=== PATIENT | male | born 1965 | race African-American/Black ===

== ENCOUNTER 2024-09-28 15:19 | Inpatient (IN) | payer MEDICAID ==
[~2024-09-28] VITALS: Ht 188 cm; Wt 122.5 kg
[2024-09-28] MEDS ORDERED: IPRATROPIUM BROMIDE (0.02%) 0.5MG/2.5ML NEB HHN STA (16:01)
[2024-09-28] MEDS ORDERED: ALBUTEROL (0.083%) 2.5MG/3ML NEB HHN STA (16:01)
[2024-09-28] MEDS: HYDRALAZINE 20MG/ML VIAL IV ONE (16:15)
[2024-09-28] MEDS: METHYLPREDNISOLONE SOD SUCC 125MG/2ML (ACT-O-VIAL) IV SCH (16:28)
[2024-09-28] MEDS: FUROSEMIDE 40MG/4ML VIAL IV ONE (16:28)
[2024-09-28] MEDS: CLONIDINE 0.2MG TABLET PO ONE (16:28)
[2024-09-28] MEDS ORDERED: IPRATROPIUM BROMIDE (0.02%) 0.5MG/2.5ML NEB HHN SCH (16:30)
[2024-09-28] MEDS: METHYLPREDNISOLONE 40MG/ML INJ IV ONE (16:37)
[2024-09-28 16:55] LABS: CHLORIDE 102 mEq/L (98-107); POTASSIUM 3.9 mEq/L (3.5-5.1); SODIUM 132 mEq/L (136-145)
[2024-09-28 16:56] LABS: CALCIUM 8.4 mg/dL (8.7-10.4); CARBON DIOXIDE 21 mEq/L (21-32)
[2024-09-28 17:01] LABS: CREATININE 0.9 mg/dL (0.6-1.3); GLUCOSE 177 mg/dL (70-105); UREA NITROGEN BLOOD 9 mg/dL (9-23)
[2024-09-28 17:04] LABS: BASOPHILS % 0.8 % (0.0-2.0); EOSINOPHILS % 9.8 % (0.0-5.0); HEMATOCRIT. 35.6 % (42.0-52.0); HEMOGLOBIN. 11.1 g/dL (14.0-18.0); MEAN CORPUSCULAR HEMOGLOBIN 23.5 pg (28.0-32.0); MEAN CORPUSCULAR HGB CONC 31.2 g/dL (31.0-37.0); MEAN CORPUSCULAR VOLUME 75.3 fL (80.0-94.0); MEAN PLATELET VOLUME 8.3 fl (7.4-10.4); MONOCYTES % 14.1 % (2.0-8.0); NEUTROPHILS % 46.3 % (40.0-76.0); PLATELET 369 x1000/uL (130-400); RED BLOOD CELL COUNT 4.73 mill/uL (4.7-6.1); RED CELL DISTRIBUTION WIDTH 22.3 % (11.6-14.6); WHITE BLOOD COUNT 6.1 x1000/uL (4.5-11.0)
[2024-09-28 17:06] LABS: ADD RBC MORPHOLOGY YES; DIFFERENTIAL COMMENT 1
[2024-09-28 17:17] LABS: TROPONIN I HIGH SENSITIVITY 54 ng/L (3.0-53)
[2024-09-28 17:27] LABS: HYPOCHROMASIA 1+; MICROCYTOSIS 2+; OVALOCYTES 1+; PLATELET ESTIMATE NORMAL
[2024-09-28 18:35] LABS: TROPONIN I HIGH SENSITIVITY 57 ng/L (3.0-53)
[2024-09-28 18:51] LABS: INR 1.1; PROTHROMBIN TIME 11.5 sec (9.6-11.0)
[2024-09-28] MEDS ORDERED: IPRATROPIUM/ALBUTEROL 0.5-3(2.5)MG/3ML NEB HHN PRN (20:00)
[2024-09-28] MEDS ORDERED: ONDANSETRON HCL 4MG/2ML INJ IV PRN (20:00)
[2024-09-28] MEDS ORDERED: MAGNESIUM/ALUMINUM HYDROXIDE/SIMETHICONE 30ML UDC PO PRN (20:00)
[2024-09-28] MEDS ORDERED: GUAIFENESIN 200MG/10ML SUGAR FREE UDC PO PRN (20:00)
[2024-09-28] MEDS ORDERED: ZOLPIDEM TARTRATE 5MG TABLET PO PRN (20:00)
[2024-09-28] MEDS ORDERED: ACETAMINOPHEN 325MG TABLET PO PRN ×2 (20:00)
[2024-09-28 20:46] LABS: IRON 28 ug/dL (65-175)
[2024-09-28 20:47] LABS: ETHANOL BLOOD 19 mg/dL (<10)
[2024-09-28 20:49] LABS: PHOSPHORUS 2.9 mg/dL (2.5-4.9); TOTAL IRON BINDING CAPACITY 315 ug/dl (250-425)
[2024-09-28] MEDS: ALBUTEROL (0.083%) 2.5MG/3ML NEB HHN NR (20:51)
[2024-09-28] MEDS: IPRATROPIUM BROMIDE (0.02%) 0.5MG/2.5ML NEB HHN NR (20:51)
[2024-09-28 20:53] VITALS: PULSE 103; RESP 20; O2SAT 98
[2024-09-28 20:53] LABS: T4 FREE 1.21 ng/dL (0.89-1.76); THYROID STIMULATING HORMONE 0.75 uIU/mL (0.55-4.78)
[2024-09-28] MEDS: MONTELUKAST SODIUM 10MG TABLET PO SCH (21:00)
[2024-09-28 21:17] LABS: CLARITY URINE CLEAR (CLEAR); COLOR URINE YELLOW (YELLOW); GLUCOSE URINE 2+ (NEGATIVE); KETONES URINE NEGATIVE (NEGATIVE); LEUKOCYTE ESTERASE URINE NEGATIVE (NEGATIVE); NITRITE URINE NEGATIVE (NEGATIVE); OCCULT BLOOD URINE NEGATIVE (NEGATIVE); PH URINE 5.5 (4.5-8.0); PROTEIN URINE 2+ (NEGATIVE); SPECIFIC GRAVITY URINE 1.006 (1.005-1.030); UROBILINOGEN URINE 0.2 E.U./dL (0.2-1.0)
[2024-09-28 21:28] LABS: *AMPHETAMINES SCREEN URINE NEGATIVE (NEGATIVE); *BARBITURATES SCREEN URINE NEGATIVE (NEGATIVE); *BENZODIAZEPINES SCREEN URINE NEGATIVE (NEGATIVE); *COCAINE SCREEN URINE PRESUMPTIVE POSITIVE (NEGATIVE); CANNABINOID URINE SCREEN NEGATIVE (NEGATIVE); ECSTASY MDMA SCREEN URINE NEGATIVE (NEGATIVE); METHADONE URINE SCREEN NEGATIVE (NEGATIVE); OPIATES URINE SCREEN NEGATIVE (NEGATIVE); PHENCYCLIDINE URINE SCREEN NEGATIVE (NEGATIVE)
[2024-09-28 21:47] LABS: BACTERIA URINE TRACE; RBC URINE NONE SEEN /hpf (0-2); SQUAMOUS EPITHELIAL CELL URINE FEW /lpf (RARE/1+); WBC URINE 0-2 /hpf (0-2)
[2024-09-28] MEDS: ENOXAPARIN 30MG/0.3ML SYR SUBCUT SCH (23:44)
[2024-09-29 00:14] LABS: CREATINE KINASE MB FRACTION 4.1 ng/mL (0.5-3.6)
[2024-09-29 01:00] VITALS: BP 134/78; PULSE 99; RESP 20; TEMP 36.6
[2024-09-29] MEDS: CLONIDINE 0.1MG TABLET PO PRN (04:17)
[2024-09-29 08:00] VITALS: BP 176/113; PULSE 98; RESP 20; TEMP 36.5; O2SAT 98
[2024-09-29] MEDS: FERROUS SULFATE 325MG TABLET PO SCH (09:36)
[2024-09-29] MEDS: PANTOPRAZOLE SODIUM 40 MG/VIAL IV SCH (09:36)
[2024-09-29] MEDS: FUROSEMIDE 40MG/4ML VIAL IVP SCH (09:36)
[2024-09-29] MEDS: DOCUSATE SODIUM 100MG CAPSULE PO PRN (09:36)
[2024-09-29] MEDS: MAGNESIUM 2 G PREMIX 50 ML IV NR (09:37)
[2024-09-29] MEDS: METOLAZONE 2.5MG TABLET PO SCH (09:39)
[2024-09-29] MEDS: IBUPROFEN 600MG TABLET PO PRN (11:54)
[2024-09-29 12:00] VITALS: BP 175/94; PULSE 96; RESP 20; TEMP 36.7; O2SAT 100
[2024-09-29 12:22] LABS: HEMOGLOBIN. 11.5 g/dL (14.0-18.0); MEAN CORPUSCULAR HEMOGLOBIN 24.1 pg (28.0-32.0); MEAN CORPUSCULAR HGB CONC 31.8 g/dL (31.0-37.0); MEAN CORPUSCULAR VOLUME 75.6 fL (80.0-94.0); MEAN PLATELET VOLUME 8.5 fl (7.4-10.4); PLATELET 320 x1000/uL (130-400); RED BLOOD CELL COUNT 4.76 mill/uL (4.7-6.1); RED CELL DISTRIBUTION WIDTH 22.3 % (11.6-14.6); WHITE BLOOD COUNT 3.1 x1000/uL (4.5-11.0)
[2024-09-29 12:34] LABS: CHLORIDE 99 mEq/L (98-107); POTASSIUM 4.9 mEq/L (3.5-5.1); SODIUM 132 mEq/L (136-145)
[2024-09-29 12:35] LABS: CALCIUM 8.8 mg/dL (8.7-10.4); CARBON DIOXIDE 22 mEq/L (21-32)
[2024-09-29 12:40] LABS: CREATINE KINASE MB FRACTION 3.2 ng/mL (0.5-3.6); CREATININE 1.3 mg/dL (0.6-1.3); TRIGLYCERIDE 112 mg/dL (0-150); UREA NITROGEN BLOOD 15 mg/dL (9-23)
[2024-09-29 12:41] LABS: LDL CHOLESTEROL 118 mg/dL (5-100); PROTEIN TOTAL 7.5 g/dL (6.0-8.3)
[2024-09-29 12:42] LABS: ALANINE AMINOTRANSFERASE 19 IU/L (10-49); ALBUMIN 3.9 g/dL (3.2-4.8); ASPARTATE AMINOTRANSFERASE 16 IU/L (<34); BILIRUBIN DIRECT 0.3 mg/dL (<=3.0); BILIRUBIN TOTAL 0.9 mg/dL (0.1-1.0); CHOLESTEROL 182 mg/dL (<200); HDL CHOLESTEROL 47 mg/dL (>55); PHOSPHORUS 3.1 mg/dL (2.5-4.9)
[2024-09-29 12:57] LABS: DIFFERENTIAL COMMENT 1
[2024-09-29 13:07] LABS: GLUCOSE 420 mg/dL (70-105)
[2024-09-29 14:25] LABS: MICROCYTOSIS 1+
[2024-09-29 14:26] LABS: ANISOCYTOSIS 3+; PLATELET ESTIMATE NORMAL
[2024-09-29] MEDS: ISOSORBIDE MONONITRATE 30MG TABLET SR 24HR PO SCH (15:07)
[2024-09-29 16:00] VITALS: BP 150/98; PULSE 89; RESP 20; TEMP 36.2; O2SAT 99
[2024-09-29 20:00] VITALS: BP 166/98; PULSE 96; RESP 19; TEMP 36.6; O2SAT 98
[2024-09-29] MEDS ORDERED: DEXTROSE 50% WATER 50ML SYRINGE IV PRN (21:15)
[2024-09-30] VITALS: BP 154/88; PULSE 96; RESP 19; TEMP 36.4; O2SAT 98
[2024-09-30] MEDS: INSULIN LISPRO 100 UNITS/ML SUBCUT NR (00:40)
[2024-09-30 04:00] VITALS: BP 124/62; PULSE 65; RESP 19; TEMP 36.3; O2SAT 98
[2024-09-30] MEDS: BLOOD SUGAR DIAGNOSTIC STRIP TEST SCH (05:58)
[2024-09-30 08:00] VITALS: BP 178/95; PULSE 85; RESP 20; TEMP 36.2; O2SAT 99
[2024-09-30] MEDS: INSULIN LISPRO 100 UNITS/ML SUBCUT SCH (09:02)
[2024-09-30 12:02] VITALS: BP 143/81; PULSE 77; RESP 18; TEMP 36.3; O2SAT 97
[2024-09-30] MEDS: AMIODARONE 200MG TABLET PO SCH (12:49)
[2024-09-30 13:19] VITALS: BP 143/81; PULSE 77; TEMP 97.3; O2SAT 97
== END 2024-09-30 13:30 | disposition home or self-care (01) | DRG 194 ==
LOC: ER 15:19 → EDBEDREQ 16:04 → EDBEDREQTM 17:22 → 7WST 21:40
PROVIDERS: ADMIT Internal Medicine; ATTEND Internal Medicine
DX: I11.0 Hypertensive heart disease with heart failure (principal); I21.A1 Myocardial infarction type 2; E87.1 Hypo-osmolality and hyponatremia; I48.92 Unspecified atrial flutter; M86.8X8 Other osteomyelitis, other site; E11.69 Type 2 diabetes mellitus with other specified complication; I50.23 Acute on chronic systolic (congestive) heart failure; J44.1 Chronic obstructive pulmonary disease with (acute) exacerbation; I16.0 Hypertensive urgency; D50.9 Iron deficiency anemia, unspecified; E83.42 Hypomagnesemia; Z89.421 Acquired absence of other right toe(s); Z79.899 Other long term (current) drug therapy
CPT/HCPCS: 36415; 71045; 80048; 80061; 80076; 80305; 80320; 81003; 82550; 82553; 82728; 82962; 83036; 83540; 83550; 83735; 83880; 83930; 83935; 84100; 84439; 84443; 84484; 85025; 85379; 93005; 93306; 94070; 94640; 94664; 99285; A4606; J0360; J1650; J1815; J1940; J2470; J2919; J3475; G0480

== ENCOUNTER 2025-02-25 11:45 | Emergency (ER) | payer MEDICAID ==
[~2025-02-25] VITALS: Ht 180.3 cm; Wt 110.0 kg
[~2025-02-25 11:45] MED LIST: APIX5TAB PO; ASPI-1160 PO; CARV25TA47 PO; CLON0.3T PO; HYDR50TA40 MT; INSU100I28 SQ; METF-1150 MT; MONT-39 PO; QUET100T34 PO; SPIR50TA5 PO
[2025-02-25 11:47] VITALS: O2SAT 99
[2025-02-25] MEDS ORDERED: NITROGLYCERIN 0.4MG TABLET SL SL PRN (12:30)
[2025-02-25 12:35] LABS: BASOPHILS % 2.0 % (0.0-2.0); EOSINOPHILS % 8.7 % (0.0-5.0); HEMATOCRIT. 37.8 % (42.0-52.0); HEMOGLOBIN. 12.3 g/dL (14.0-18.0); LYMPHOCYTES % 25.8 % (20.0-50.0); MEAN PLATELET VOLUME 8.0 fl (7.4-10.4); MONOCYTES % 10.3 % (2.0-8.0); NEUTROPHILS % 53.2 % (40.0-76.0); PLATELET 419 x1000/uL (130-400); RED BLOOD CELL COUNT 4.62 mill/uL (4.7-6.1); RED CELL DISTRIBUTION WIDTH 18.8 % (11.6-14.6)
[2025-02-25] MEDS: FUROSEMIDE 40MG/4ML VIAL IV ONE (12:41)
[2025-02-25] MEDS: MORPHINE SULFATE 4 MG/ML INJ (FOR IV/IM USE) IV ONE (12:42)
[2025-02-25] MEDS: ONDANSETRON HCL 4MG/2ML INJ IV ONE (12:42)
[2025-02-25] MEDS: ASPIRIN 81MG TABLET PO ONE (12:42)
[2025-02-25 12:48] LABS: INR 1.0
[2025-02-25 12:51] LABS: CREATININE 0.9 mg/dL (0.6-1.3); UREA NITROGEN BLOOD < 5 mg/dL (9-23)
[2025-02-25 12:53] LABS: ASPARTATE AMINOTRANSFERASE 48 IU/L (<34); BILIRUBIN DIRECT 0.2 mg/dL (<=3.0)
[2025-02-25 12:54] LABS: BILIRUBIN TOTAL 0.6 mg/dL (0.1-1.0); PROTEIN TOTAL 7.8 g/dL (6.0-8.3)
[2025-02-25 12:59] LABS: TROPONIN I HIGH SENSITIVITY 59 ng/L (3.0-53)
[2025-02-25] MEDS: SODIUM BICARBONATE 8.4% 50MEQ/50ML SYR IV ONE (13:20)
[2025-02-25 15:09] VITALS: TEMP 37.1; O2SAT 99
[2025-02-25 15:11] VITALS: BP 165/82; PULSE 97; RESP 19; TEMP 98.7
== END 2025-02-25 16:07 | disposition admitted as inpatient to this hospital (09) ==
LOC: ER 11:45 → EDBEDREQ 13:49 → EDBEDREQTM 13:49 → ENRESERV 15:30 → CANBEDREQ 16:00 → ER 16:07
DX: I21.4 Non-ST elevation (NSTEMI) myocardial infarction (principal)
CPT/HCPCS: 80076; 80048; 83880; 83735; 85025; 85610; 85730; 84484; 36415; 71045; 93970; 93005; 96374; 96375; 99291; Z7610 ×3; J1938; J2405; J3490; J2270

== ENCOUNTER 2025-05-13 17:09 | Inpatient (IN) | payer MEDICAID ==
[~2025-05-13] VITALS: Ht 188 cm; Wt 146.1 kg
[~2025-05-13 17:09] MED LIST changes: +FOLI-43 PO; +FURO80TA87 MT; +GABA-1180 PO; +LABE100T9 PO; +LOSA50TA41 MT; +PROT40 MT; +THIA100T72 PO
[2025-05-13] MEDS: IPRATROPIUM/ALBUTEROL 0.5-3(2.5)MG/3ML NEB HHN ONE ×2 (19:22→21:15)
[2025-05-13 20:40] LABS: BASOPHILS % 0.8 % (0.0-2.0); EOSINOPHILS % 7.4 % (0.0-5.0); HEMATOCRIT. 35.8 % (42.0-52.0); HEMOGLOBIN. 11.1 g/dL (14.0-18.0); LYMPHOCYTES % 19.8 % (20.0-50.0); MEAN PLATELET VOLUME 7.3 fl (7.4-10.4); MONOCYTES % 8.2 % (2.0-8.0); NEUTROPHILS % 63.8 % (40.0-76.0); PLATELET 430 x1000/uL (130-400); RED BLOOD CELL COUNT 4.54 mill/uL (4.7-6.1); RED CELL DISTRIBUTION WIDTH 18.6 % (11.6-14.6)
[2025-05-13 20:50] LABS: CREATININE 0.8 mg/dL (0.6-1.3)
[2025-05-13 20:51] LABS: PROTEIN TOTAL 7.3 g/dL (6.0-8.3); UREA NITROGEN BLOOD 9 mg/dL (9-23)
[2025-05-13 20:52] LABS: ASPARTATE AMINOTRANSFERASE 20 IU/L (<34); BILIRUBIN DIRECT 0.3 mg/dL (<=3.0)
[2025-05-13 20:53] LABS: BILIRUBIN TOTAL 0.7 mg/dL (0.1-1.0)
[2025-05-13 21:12] LABS: TROPONIN I HIGH SENSITIVITY 73 ng/L (3.0-53)
[2025-05-13] MEDS: ACETAMINOPHEN 325MG TABLET PO ONE (21:57)
[2025-05-13] MEDS: MORPHINE SULFATE 4 MG/ML INJ (FOR IV/IM USE) IV ONE (21:57)
[2025-05-13] MEDS: FUROSEMIDE 40MG/4ML VIAL IVP ONE (21:57)
[2025-05-13] MEDS ORDERED: ENOXAPARIN 40MG/0.4ML SYR SUBCUT SCH (22:15)
[2025-05-13] MEDS ORDERED: MAGNESIUM/ALUMINUM HYDROXIDE/SIMETHICONE 30ML UDC PO PRN (22:15)
[2025-05-13] MEDS ORDERED: ONDANSETRON HCL 4MG/2ML INJ IV PRN (22:15)
[2025-05-13] MEDS ORDERED: HYDROCODONE/ACETAMINOPHEN 5/325MG TABLET PO PRN (22:15)
[2025-05-13] MEDS ORDERED: ACETAMINOPHEN 325MG TABLET PO PRN (22:15)
[2025-05-13] MEDS ORDERED: ZOLPIDEM TARTRATE 5MG TABLET PO PRN (22:15)
[2025-05-13 22:25] LABS: CLARITY URINE CLEAR (CLEAR); COLOR URINE YELLOW (YELLOW); GLUCOSE URINE 3+ (NEGATIVE); KETONES URINE NEGATIVE (NEGATIVE); LEUKOCYTE ESTERASE URINE NEGATIVE (NEGATIVE); NITRITE URINE NEGATIVE (NEGATIVE); OCCULT BLOOD URINE NEGATIVE (NEGATIVE); PH URINE 6.5 (4.5-8.0); PROTEIN URINE 3+ (NEGATIVE); SPECIFIC GRAVITY URINE 1.015 (1.005-1.030); UROBILINOGEN URINE 1.0 E.U./dL (0.2-1.0)
[2025-05-13] MEDS: METHYLPREDNISOLONE SOD SUCC 40MG/ML (ACT-O-VIAL) IV SCH (22:28)
[2025-05-13 22:29] LABS: RBC URINE NONE SEEN /hpf (0-2); WBC URINE 0-2 /hpf (0-2)
[2025-05-13 22:30] LABS: BACTERIA URINE RARE; SQUAMOUS EPITHELIAL CELL URINE RARE /lpf (RARE/1+)
[2025-05-13 22:31] LABS: *AMPHETAMINES SCREEN URINE NEGATIVE (NEGATIVE)
[2025-05-13 22:32] VITALS: PULSE 100; RESP 22; O2SAT 96
[2025-05-13 22:32] LABS: *BARBITURATES SCREEN URINE NEGATIVE (NEGATIVE); *BENZODIAZEPINES SCREEN URINE NEGATIVE (NEGATIVE); *COCAINE SCREEN URINE PRESUMPTIVE POSITIVE (NEGATIVE); CANNABINOID URINE SCREEN NEGATIVE (NEGATIVE); ECSTASY MDMA SCREEN URINE NEGATIVE (NEGATIVE); METHADONE URINE SCREEN NEGATIVE (NEGATIVE); OPIATES URINE SCREEN PRESUMPTIVE POSITIVE (NEGATIVE); PHENCYCLIDINE URINE SCREEN NEGATIVE (NEGATIVE)
[2025-05-13 23:11] LABS: TROPONIN I HIGH SENSITIVITY 72 ng/L (3.0-53)
[2025-05-14] VITALS (9 sets, daily range): BP systolic 119–177; BP diastolic 55–97; PULSE 59–120; RESP 18–20; TEMP 36.4–36.7; O2SAT 96–100
[2025-05-14] MEDS: CLONIDINE 0.1MG TABLET PO PRN (00:35)
[2025-05-14] MEDS: GABAPENTIN 300MG CAPSULE PO SCH (06:34)
[2025-05-14] MEDS: MORPHINE SULFATE 2 MG/ML INJ (NOT FOR IM USE) IV PRN (06:36)
[2025-05-14] MEDS: IPRATROPIUM/ALBUTEROL 0.5-3(2.5)MG/3ML NEB NEB SCH (07:33)
[2025-05-14 08:22] LABS: CREATININE 0.8 mg/dL (0.6-1.3); UREA NITROGEN BLOOD 13 mg/dL (9-23)
[2025-05-14 08:23] LABS: HEMATOCRIT. 36.9 % (42.0-52.0); HEMOGLOBIN. 11.6 g/dL (14.0-18.0); MEAN PLATELET VOLUME 8.1 fl (7.4-10.4); PLATELET 421 x1000/uL (130-400); RED BLOOD CELL COUNT 4.72 mill/uL (4.7-6.1); RED CELL DISTRIBUTION WIDTH 18.2 % (11.6-14.6)
[2025-05-14] MEDS: QUETIAPINE FUMARATE 50MG TABLET PO SCH (09:26)
[2025-05-14] MEDS: MONTELUKAST SODIUM 10MG TABLET PO SCH (09:26)
[2025-05-14] MEDS: CLONIDINE 0.3MG TABLET PO SCH (09:27)
[2025-05-14] MEDS: SPIRONOLACTONE 50MG TABLET PO SCH (09:27)
[2025-05-14] MEDS: LABETALOL HCL 100MG TABLET PO SCH (09:27)
[2025-05-14] MEDS: HYDRALAZINE HCL 50MG TABLET PO SCH (09:27)
[2025-05-14] MEDS: THIAMINE HCL 100MG TABLET PO SCH (09:28)
[2025-05-14] MEDS: PANTOPRAZOLE SODIUM 40 MG/VIAL IV SCH (09:28)
[2025-05-14] MEDS: ASPIRIN 81MG TABLET PO SCH (09:28)
[2025-05-14] MEDS: LOSARTAN 50 MG TABLET PO SCH (09:28)
[2025-05-14] MEDS: FUROSEMIDE 40MG TABLET PO SCH (09:28)
[2025-05-14] MEDS: FOLIC ACID 1MG TABLET PO SCH (09:28)
[2025-05-14] MEDS: APIXABAN 5 MG TABLET PO SCH (09:28)
[2025-05-14] MEDS: INSULIN GLARGINE 100 UNITS/ML SUBCUT SCH (09:54)
[2025-05-14 09:58] LABS: BAND% 1.0 % (1.0-6.0); LYMPHOCYTES % MANUAL 16.0 % (20.0-50.0); MONOCYTES % MANUAL 2.0 % (2.0-8.0); NEUTROPHILS % MANUAL 81.0 % (45.0-75.0); PLATELET ESTIMATE INCREASED
[2025-05-14] MEDS ORDERED: FLUT12AE3 INH (10:37)
[2025-05-14] MEDS ORDERED: DAPA10TA MT (10:37)
[2025-05-14] MEDS ORDERED: ALBU18HF2 IH (10:37)
[2025-05-14] MEDS ORDERED: ISOS10TA2 MT (10:37)
[2025-05-14] MEDS ORDERED: *PATIENT'S OWN MEDICATION STORAGE XX SCH (11:15)
[2025-05-14] MEDS ORDERED: DEXTROSE 50% WATER 50ML SYRINGE IV PRN (18:30)
[2025-05-14] MEDS: INSULIN LISPRO 100 UNITS/ML SUBCUT SCH (18:42)
[2025-05-14] MEDS: BLOOD SUGAR DIAGNOSTIC STRIP TEST SCH (21:00)
[2025-05-15] VITALS (7 sets, daily range): BP systolic 119–138; BP diastolic 57–70; PULSE 6–61; RESP 16–20; TEMP 36.3–36.4; O2SAT 99–100
== END 2025-05-15 09:53 | disposition left against medical advice (07) | DRG 816 ==
LOC: ER 17:09 → 8EST 21:16 → EDBEDREQTM 21:20 → EDBEDREQSVC 21:20 → EDBEDREQ 21:20 → ENRESERV 21:34 → CANRESERV 21:36 → ENRESERVTM 21:36 → ENRESERV 22:45
PROVIDERS: ADMIT Internal Medicine; ATTEND Internal Medicine
DX: T40.5X1A Poisoning by cocaine, accidental (unintentional), initial encounter (principal); I24.9 Acute ischemic heart disease, unspecified; I11.0 Hypertensive heart disease with heart failure; J44.1 Chronic obstructive pulmonary disease with (acute) exacerbation; E11.9 Type 2 diabetes mellitus without complications; F14.10 Cocaine abuse, uncomplicated; Z53.29 Procedure and treatment not carried out because of patient's decision for other reasons; F17.210 Nicotine dependence, cigarettes, uncomplicated; I50.22 Chronic systolic (congestive) heart failure; Z86.73 Personal history of transient ischemic attack (TIA), and cerebral infarction without residual deficits; Z88.8 Allergy status to other drugs, medicaments and biological substances; Z79.4 Long term (current) use of insulin; Z79.84 Long term (current) use of oral hypoglycemic drugs; Z79.82 Long term (current) use of aspirin; Z79.899 Other long term (current) drug therapy; Z85.9 Personal history of malignant neoplasm, unspecified; Z71.51 Drug abuse counseling and surveillance of drug abuser; Y92.89 Other specified places as the place of occurrence of the external cause
CPT/HCPCS: 36415; 71045; 80048; 80076; 80305; 81003; 82962; 83735; 83880; 84443; 84484; 85025; 85379; 93005; 93971; 94070; 94640; 94664; 99285; J1815; J1938; J2270; J2470; J2919